=== PATIENT | male | born 1945 | race African-American/Black ===

== ENCOUNTER → 2020-09-11 08:44 | Outpatient (CLI) | payer OTHER | END | disposition home or self-care (01) | LOC: D.HCCARDIO 08:44 | PROVIDERS: ATTEND Internal Medicine Cardiovascular Disease | DX: R94.31 Abnormal electrocardiogram [ECG] [EKG] (principal) ==

== ENCOUNTER 2020-09-24 06:48 | Day surgery (SDC) | payer MEDICARE ==
[~2020-09-24] VITALS: Ht 172.7 cm; Wt 98.1 kg
--- NOTE | ~2020-09-24 | HEMODYNAMI ---
PATIENT:TED VUONG MEDICAL RECORD: [id number] : 41 LOCATION:[facility] ADMISSION DATE: 09/24/20 Generatedon:19:07 Patient name: TED VUONG Patient #: [id number] SSN: : 1945 Date of study: 09/24/2020 Page: Of Hemodynamic Procedure Report Patient Data Patient Demographics Procedure consent was obtained First Name: TED Gender: Male Last Name: YEVGENIY : 1945 Middle Initial: EDWARD Age: 75 year(s) Patient #: [id number] Race: Black Additional ID: [id number] Contact details [address]: [address] [place] [address] State: [place] City: [place] Zip code: [address] Past Medical History Performed procedures and imaging results Date Procedure Procedure Results Comments Stress testing Positive->Intermediate with SPECT MPI risk Allergies: No known allergies Admission Admission Data Admission Date: 09/24/2020 Admission Time: 6:48 Arrival Date: 09/24/2020 Arrival Time: 0:00 Height (in.): 68 BSA: 2.11 (m2) Height (cm.): 172.72 BMI: 32.85 (kg/m2) Weight (lbs.): 216.05 Weight (kg.): 98 Lab Results Lab Result Date: 09/24/2020 Lab Result Time: 0:00 Biochemistry Name Units Result Min Max BUN mg/dl 17 --(---*)-- 7 18 Creatinine mg/dl 1.4 --(----)*- 0.6 1.3 eGFR ml/min 52 *-(----)-- 90 120 NONAFRICAN CBC Name Units Result Min Max Hematocrit % 40.8 -*(----)-- 42 54 Hemoglobin g/dl 14 --(*---)-- 13.5 17.5 Procedure Procedure Types Cath Procedure Diagnostic Procedure [facility] w/Coronaries Aortic Root Angiography Sedation Charges Moderate Sedation 25-39 minutes Peripheral Cath Diagnostic Procedure Abd/Extremity Aortagram Procedure Description Procedure Date Procedure Date: 09/24/2020 Procedure Start Time: 8:44 Procedure End Time: 9:05 Procedure Staff Name Function Julio Spaulding MD Performing Physician Disha Jackson RT Monitor Jenn Crawley RT Scrub Renny Camara RN Nurse Procedure Data Cath Procedure Fluoroscopy Diagnostic fluoroscopy Total fluoroscopy Time: 3.5 time: 3.5 min min Diagnostic fluoroscopy Total fluoroscopy dose: 940 dose: 940 mGy mGy Contrast Material Contrast Material Type Amount (ml) Isovue 300 129 Entry Location Entry Primary Successful Side Size Upsize Upsize Entry Closure Succes sful Closure Location (Fr) 1 (Fr) 2 (Fr) Remarks Device Remarks Femoral Right 5 Fr Exoseal artery Estimated blood loss: 10 ml Diagnostic catheters Device Type Used For End Catheter Placement MULTIPACK 3DRC 5Fr Procedure catheter MULTIPACK JL 4.0 5Fr Procedure catheter DIAGNOSTIC JL 5 5Fr Procedure catheter ([id number]) MULTIPACK Pigtail 5 Fr Ventriculography catheter Procedure Complications No complications Procedure Medications Medication Administration Route Dosage 0.9% NaCl I.V. 100 ml/hr Oxygen etCO2 Nasal cannula 2 l/min Heparin Flush Bag added to field 2 bags (1000units/500ml NS) Lidocaine 2% added to field 20 Versed I.V. 1 mg Fentanyl I.V. 50 mcg Versed I.V. 1 mg Hemodynamics Rest BSA: 2.11 (m2) HGB: 14 (g/dl) O2 Consumption: Estimated: 239.07 (ml/min) O2 Cons umption indexed: Estimated:113.3 (ml/min/m) Heart Rate: 66 (bpm) Pressure Samples Time Site Value (mmHg) Purpose Heart Use Rate(bpm) 8:53 LV 131/-2,12 Snapshot 25 Gradients Valve Time Site Site Mean SEP/DFP Peak To Heart Use 1 2 (mmHg) (sec/min) Peak Rate (mmHg) (bpm) Aortic 8:54 LV AO 65 Snapshots Pre Cath Intra NCS Post Cath Vital Signs Time Heart Resp SPO2 etCO2 NIBP (mmHg) Rhythm Pain Sedation Rate (ipm) (%) (mmHg) Status Level (bpm) 8:29:25 76 18 99 22.4 151/89(127) NSR 0 (11) 10(A) , No pain 8:33:41 69 19 98 32.9 155/87(121) NSR 0 (11) 10(A) , No pain 8:37:57 72 17 98 44.1 144/84(115) NSR 0 (11) 10(A) , No pain 8:42:13 73 16 98 29.8 149/86(114) NSR 0 (11) 9(A) , No pain 8:46:31 65 16 98 38.9 141/86(123) NSR 0 (11) 9(A) , No pain 8:50:43 61 17 98 41.1 150/94(120) NSR 0 (11) 9(A) , No pain 8:55:01 70 18 98 37.3 145/84(127) NSR 0 (11) 9(A) , No pain 8:59:19 69 18 99 38.8 152/83(120) NSR 0 (11) 10(A) , No pain 9:03:39 69 17 98 41.9 138/89(115) NSR 0 (11) 10(A) , No pain Medications Time Medication Route Dose Verified Delivered Reason Notes Effe ctiveness by by 8:27:43 0.9% NaCl I.V. 100 Renny Renny Per ml/hr Hoa Camara physician RN RN 8:27:53 Oxygen etCO2 2 Renny Renny for low 02 Nasal l/min Lorigan Lorigan sats cannula RN RN 8:28:03 Heparin Flush added 2 Renny Renny used for Bag to bags Lorigan Lorigan procedure (1000units/500ml field RN RN NS) 8:28:12 Lidocaine 2% added 20ml Renny Renny for local to vial Lorigan Lorigan anesthetic field RN RN 8:31:23 Versed I.V. 1 mg Renny Renny for Lorigan Lorigan sedation RN RN 8:31:31 Fentanyl I.V. 50 Renny Renny for mcg Lorigan Lorigan sedation RN RN 8:40:43 Versed I.V. 1 mg Renny Renny for Lorigan Lorigan sedation RN fluorescent solution mixer Log Time Note 8:05:49 Informed consent obtained and on chart 8:10:11 Renny Camara RN sent for patient. Start room use. 8:10:12 Procedure Status Elective Heart Cath (OP). 8:10:13 Time tracking: Regular hours (M-F 7:00 - 5:00) 8:10:17 Plan of Care:Hemodynamics will remain stable., Cardiac rhythm will remain stable., Comfort level will be maintained., Respiratory function will remain adequate., Patient/ family verbilizes understanding of procedure., Procedure tolerated without complication., Recovers from procedure without complications.. 8:10:26 H&P Date Dictated: 09/03/2020 Within 30 days and on chart., H&P Addendum completed by physician on day of procedure. (MUST COMPLETE FOR ALL OUTPATIENTS). 8:10:34 Patient allergic to No known allergies 8:12:07 Lab Result : BUN 17 mg/dl 8:12:07 Lab Result : Creatinine 1.4 mg/dl 8:12:07 Lab Result : eGFR NONAFRICAN 52 ml/min 8:12:07 Lab Result : Hemoglobin 14 g/dl 8:12:07 Lab Result : Hematocrit 40.8 % 8:12:20 Patient Weight : 216.05 lbs 8:12:22 Patient Height : 68 inches 8:12:28 Arrival Date: 09/24/2020 12:00:00 AM 8:13:36 Stress Test: no; abnormal INFERIOR AND APICAL 8:27:43 0.9% NaCl 100 ml/hr I.V. was administered by Renny Camara RN; Per physician; Verbal order read back and verified. 8:27:53 Oxygen 2 l/min etCO2 Nasal cannula was administered by Renny Caamra RN; for low 02 sats; Verbal order read back and verified. 8:28:03 Heparin Flush Bag (1000units/500ml NS) 2 bags added to field was administered by Renny Camara RN; used for procedure; Verbal order read back and verified. 8:28:12 Lidocaine 2% 20ml vial added to field was administered by Renny Camara RN; for local anesthetic; Verbal order read back and verified. 8:28:16 Vital chart was started 8:29:05 Patient received from Pre/Post Procedure Room to [facility] 2 Alert and oriented. Tansferred to table in Supine position. 8:29:07 Warm blankets applied, and mariam hugger turned on for patient comfort. 8:29:07 Correct patient and procedure confirmed by team. 8:29:08 ECG and BP/O2 sat monitors applied to patient. 8:29:09 Baseline sample Acquired. 8:29:13 Rhythm: sinus rhythm 8:29:17 Full Disclosure recording started 8::26 Pre-procedure instructions explained to patient. 8::28 Family unavailable. 8::30 Patient NPO since Midnight. 8:29:32 Is the patient allergic to Iodine/contrast media? No. 8:29:34 Was the patient premedicated? Yes 8:29:41 Is patient on blood thinner?No 8:29:56 Patient diabetic? No. 8:30:03 Snore? Yes 8:30:04 Sleep apnea? No 8:30:14 Sticks out tongue? Yes 8:30:28 Patient pain scale 0/10 ?. 8:30:42 IV patent on arrival in left antecubital with 0.9% NaCl at O. 8:30:45 Lab results completed and on chart. 8:30:51 Right groin area was prepped with chlora-prep and draped in sterile fashion 8:30:52 Alarms reviewed by R. N. 8:30:53 Sharps counted by scrub and verified by R.N. 8:30:55 Physician arrived 8:30:55 --------ALL STOP TIME OUT------ 8:30:56 Final Timeout: patient, procedure, and site verified with staff and physician. All members of the team are in agreement. 8:31:04 Right groin site verified by team. 8:31:09 Fire Safety Assessment: A--An alcohol-based skin anteseptic being used preoperatively., C--Open oxygen or nitrous oxide is being used., D--An ESU, laser, or fiber-optic light is being used. 8:31:23 Versed 1 mg I.V. was administered by Renny Camara RN; for sedation; Verbal order read back and verified. 8:31:25 Physical assessment completed. ASA score P 3 - A patient with severe systemic disease as per Julio Spaulding MD. 8:31:31 Fentanyl 50 mcg I.V. was administered by Renny Camara RN; for sedation; Verbal order read back and verified. 8:32:06 2) 60-89 Mildly reduced kidney function, and other findings (as for stage 1) point to kidney disease. 8:32:11 Maximum allowable contrast dose (3.7 X eGFR X 0.75)174 ml. 8:32:15 Sedation plan: IV Moderate Sedation Medication:Versed, Fentanyl 8:32:20 Use device set Femoral Dx 8:32:36 ACIST Syringe (09974) opened to sterile field. 8:32:36 Bag Decanter (2002S) opened to sterile field. 8:32:37 Medline Cath Pack ([id number]) opened to sterile field. 8:32:39 ACIST Hand Control (38491) opened to sterile field. 8:32:40 ACIST Manifold (35406) opened to sterile field. 8:32:41 DIAGNOSTIC Multipack 5Fr catheter set ([id number]) opened to sterile field. 8:32:43 SHEATH 5FR [place] ([id number]) opened to sterile field. 8:32:44 EMERALD Guide Wire (219-608) opened to sterile field. 8:32:47 Tegaderm 4 x 4 (1626W) opened to sterile field. 8:40:43 Versed 1 mg I.V. was administered by Renny Camara RN; for sedation; Verbal order read back and verified. 8:44:03 Procedure started. 8:44:04 Zero performed for pressure channel P1 8:44:25 Local anesthetic to right femoral artery with Lidocaine 2% by Julio Spaulding MD.INITIAL ACCESS ONLY 8:45:52 A 5 Fr sheath was inserted into the Right Femoral artery 8:46:13 A MULTIPACK 3DRC 5Fr catheter was advanced over the wire and used for Procedure. 8:46:17 RCA angiography performed. 8:48:18 Catheter exchanged over wire. 8:48:25 A MULTIPACK JL 4.0 5Fr catheter was advanced over the wire and used for Procedure. 8:50:35 UNABLE TO CANNULATE 8:50:59 Catheter exchanged over wire. 8:51:24 A DIAGNOSTIC JL 5 5Fr catheter ([id number]) was advanced over the wire and used for Procedure. 8:51:33 LCA angiography performed. 8:52:14 Catheter removed. 8:52:30 A MULTIPACK Pigtail 5 Fr catheter was advanced over the wire and used for Ventriculography. 8:52:56 LV angiography performed. 8:53:09 EXOSEAL 5Fr (EX500) opened to sterile field. 8:53:34 LV gram done using HAQ 8:53:38 LV hemodynamics recorded. 8:53:47 EF : 55 % 8:53:58 Aortic Root visualized 8:54:11 Abdominal Aortagram was performed. 8:56:02 Catheter removed. 8:57:17 Procedure type changed to Cath procedure, Diagnostic procedure, [facility], [facility] w/Coronaries, Aortic Root Angiography, Sedation Charges, Moderate Sedation 25-39 minutes, Peripheral Cath Diagnostic Procedure, Abd/Extremity, Aortagram 8:57:31 Sheath removed intact; hemostasis achieved with Exoseal to the Right Femoral artery. 8:58:11 Procedure ended.(Physican Out) 8:58:40 Fluoroscopy time 03.50 minutes. 8:58:43 Fluoroscopy dose: 940 mGy 8:58:43 Flurop Dose total: 940 8:58:49 Dose Area Product 19101 mGy/cm. 8:58:52 Contrast amount:Isovue 300 129ml. 8:59:06 Maximum allowable dose exceeded? No. 8:59:07 Sharps counted by scrub and verified by R.N. 8:59:09 Insertion/operative site no bleeding no hematoma. 8:59:14 Post right femoral artery:stable 8:59:19 Post Procedure Pulses reassessed and unchanged 8:59:27 Post-procedure physical assessment completed. ASA score P 3 - A patient with severe systemic disease as per Julio Spaulding MD. 8:59:30 Post procedure rhythm: unchanged. 8:59:34 Estimated blood loss: 10 ml 8:59:35 Post procedure instruction explained to patient.Patient verbalizes understanding. 8:59:42 Procedure and supply charges have been captured, reviewed, submitted and are correct. 9:03:59 Procedure Complication : No complications 9:04:03 Vital chart was stopped 9:04:[address] [facility] Findings: mild to moderate CAD (<70%) 9:04:35 Operative report dictated upon procedure completion. 9:04:54 See physician's report for complete and final results. 9:04:57 Report given to Pre/Post Procedure Room. 9:04:59 Patient transfered to Pre/Post Procedure Room with Stretcher. 9:05:02 Procedure ended. 9:05:02 Full Disclosure recording stopped 9:05:08 End room use (Document Last) 9:05:52 End room use (Document Last) 9:06:43 End room use (Document Last) Device Usage Item Name Manufacture Quantity Catalog Hospital Part Current Minimal L ot# / Number Charge Number Stock Stock Serial# Code ACIST Acist 1 39441 857062 774835 421435 20 Syringe Medical (41906) Systems Inc Bag Microtek 1 2001S 921249 59276 785474 5 Decanter Medical Inc. () Medline Medline 1 [id number] 340418 63140 792929 5 Cath Pack ([id number]) ACIST Hand Acist 1 78557 371843 696270 625030 5 Control Medical (66469) Systems Inc ACIST Acist 1 09758 993436 433171 810555 5 Manifold Medical (47036) Systems Inc DIAGNOSTIC Cardinal 1 [id number] 671406 34661 977175 30 Multipack Health 5Fr catheter set (LP0666) SHEATH 5FR Terumo 1 ALS215 828511 788977 715631 5 [place] ([id number]) EMERALD Cardinal 1 502-455 906263 562176 306085 5 Guide Wire Health (502455) Tegaderm 4 3M 1 1626W 125825 743155 762052 5 x 4 (1626W) MULTIPACK Cardinal 1 026595 5 3DRC 5Fr Health catheter MULTIPACK Cardinal 1 388888 5 JL 4.0 5Fr Health catheter DIAGNOSTIC Cardinal 1 [id number] 633760 134051 074256 5 JL 5 5Fr Health catheter (228304I) MULTIPACK Cardinal 1 436725 5 Pigtail 5 Health Fr catheter EXOSEAL 5Fr Cardinal 1 EX500 870366 665626 257890 10 (EX500) Health Signature Audit [place] Stage Time Signature Unsigned Intra-Procedure 09/24/2020 Disha Jackson 9:05:52 AM RT(R) Intra-Procedure 09/24/2020 Renny 9:06:43 AM Hoa HARRIS Intra-Procedure 09/24/2020 Julio Spaulding MD 9:07:24 AM Signatures Performing Physician : Signature : Julio Spaulding MD Date : Time : Monitor : Disha Manuel Signature : RT Date : Time : Nurse : Renny Lorigan Signature : RN Date : Time : [address] [place] [address]
[2020-09-24] MEDS ORDERED: FLOMAX0.4 MG PO (07:17)
[2020-09-24] MEDS ORDERED: PRAVACHOL40 MG PO (07:17)
[2020-09-24] MEDS ORDERED: NORVASC10 MG PO (07:17)
[2020-09-24 07:41] VITALS: BP 140/82; Ht 172.7 cm; Wt 98.1 kg
[2020-09-24 07:42] LABS: BASOPHILS 0.4 % (0-2); EOSINOPHILS 1.9 % (0-7); HEMATOCRIT 40.8 % (42.0-54.0); IMMATURE GRANULOCYTES 0.2 % (0-5); LYMPHOCYTE ABS# 1.46 10x3/uL (1.32-3.57); LYMPHOCYTES 30.4 % (15-50); MCH 27.8 pg (26.0-34.0); MCHC 34.3 g/dL (31.0-37.0); MCV 81.1 fL (80.0-100.0); MEAN PLATELET VOLUME 9.8 fL (7.4-10.4); MONOCYTES 11.9 % (2-11); NEUTROPHIL ABS# 2.66 10x3/uL (1.78-5.38); NEUTROPHILS 55.2 % (40-80); PLATELET COUNT 240 10x3/uL (130-400); RBC 5.03 10x6/uL (4.20-6.10); RDW 14.2 % (11.5-14.5); WBC 4.8 10x3/uL (4.8-10.8)
[2020-09-24 07:51] LABS: CALCIUM 9.1 mg/dL (8.5-10.1); CARBON DIOXIDE 29.1 mmol/L (21.0-32.0); CHOL - HDL RATIO 3.6 ratio (2.3-4.9); CREATININE - SERUM 1.4 mg/dL (0.6-1.3); POTASSIUM - SERUM 3.1 mmol/L (3.5-5.1)
--- NOTE | 2020-09-24 09:13 | NUR ---
PT ARRIVED BY STRETCHER. PLACED ON MONITORS. ASSESSMENT COMPLETED. VSS AT THIS TIME. CALL LIGHT WITHIN REACH. FAMILY AT BEDSIDE.
--- NOTE | 2020-09-24 09:27 | NUR ---
RIGHT GROIN DRESSING C/D/I. NO S/S OF HEMATOMA NOTED. RIGHT PEDAL PULSE PALPABLE. RESTING COMFORTABLY. DENIES NAUSEA/PAIN.
--- NOTE | 2020-09-24 09:52 | NUR ---
DR. CHAMBERLAIN ROUNDED AND SPOKE WITH PT.
--- NOTE | 2020-09-24 10:00 | NUR ---
RIGHT GROIN DRESSING C/D/I. NO S/S OF HEMATOMA NOTED. RIGHT PEDAL PULSE PALPABLE. VSS AT THIS TIME.
--- NOTE | 2020-09-24 10:30 | NUR ---
RIGHT GROIN DRESSING C/D/I. NO S/S OF HEMATOMA NOTED. RIGHT PEDAL PULSE PALPABLE. HEAD OF BED INC TO 30 DEGREES. TOLERATED WELL. SET UP WITH DRINK. DOES NOT WANT SANDWICH AT THIS TIME. DENIES NAUSEA/PAIN.
--- NOTE | 2020-09-24 11:00 | NUR ---
PT RESTING COMFORTABLY. RIGHT GROIN DRESSING C/D/I. NO S/S OF HEMATOAM NOTED. CALL LIGHT WITHIN REACH. RIGHT PEDAL PULSE PALPABLE.
--- NOTE | 2020-09-24 11:08 | NUR ---
PIV D/C'D WITH CATH TIP INTACT. TOLERATED WELL. VSS. RIGHT GROIN DRESSING C/D/I. NO S/S OF HEMATOMA NOTED. PT INSTRUCTED TO GET UP AND DRESSED AT THIS TIME. FAMILY AT BEDSIDE TO ASSIST. CALL LIGHT WITHIN REACH.
--- NOTE | 2020-09-24 11:15 | NUR ---
DISCUSSED DISCHARGE INSTRUCTIONS WITH PT AN PT'S SIGNIFICANT OTHER.
--- NOTE | 2020-09-24 11:20 | NUR ---
RIGHT GROIN DRESSING C/D/I. NO S/S OF HEMATOMA NOTED. PT AMBULATED TO RESTROOM AND VOIDED WITHOUT DIFFICULTY. STEADY GAIT NOTED.
--- NOTE | 2020-09-24 11:30 | NUR ---
PT TAKEN OUT TO VEHICLE BY WHEELCHAIR. NO S/S OF DISTRESS NOTED. ALL BELONGINGS AND PAPERWORK IN HAND.
== END 2020-09-24 11:30 | disposition home or self-care (01) ==
LOC: D.CATH 06:48
PROVIDERS: ATTEND Internal Medicine Cardiovascular Disease
DX: R94.39 Abnormal result of other cardiovascular function study (principal); R94.31 Abnormal electrocardiogram [ECG] [EKG]; I10 Essential (primary) hypertension; E78.00 Pure hypercholesterolemia, unspecified

== ENCOUNTER → 2020-11-08 08:28 | Outpatient (CLI) | payer MEDICARE ==
[2020-09-24 07:41] VITALS: BMI 32.8
[~2020-11-08 08:28] MED LIST: FLOMAX0.4 MG PO; NORVASC10 MG PO; PRAVACHOL40 MG PO
== END | disposition home or self-care (01) ==
LOC: D.CT 08:28
PROVIDERS: ATTEND Internal Medicine Cardiovascular Disease
DX: I72.8 Aneurysm of other specified arteries (principal)